=== PATIENT | male | born 1995 | race Caucasian/White ===

== ENCOUNTER 2024-09-08 15:19 | Emergency (ER) | payer BC, SELFPAY ==
[2024-09-08 15:26] VITALS: BP 152/95
[2024-09-08 15:41] LABS: Hematocrit 45.7 % (39.0-52.0); Hemoglobin 15.8 g/dL (13.0-18.0); Mean Corp Hgb Conc. 34.6 g/dL (33.0-37.0); Mean Corpuscular Volume 87.5 fL (80.0-94.0); Nucleated Red Blood Cells % 0 % (-); Platelet Count 326 10^3/uL (130-400); Red Cell Dist. Width 11.9 % (11.5-14.5)
[2024-09-08 15:51] LABS: ALT (SGPT) 21 U/L (0-50); AST (SGOT) 32 U/L (17-59); Albumin 5.0 g/dl (3.5-5.0); Alkaline Phosphatase 59 U/L (38-126); Blood Urea Nitrogen 13 mg/dl (9-20); Calcium 10.0 mg/dl (8.4-10.2); Carbon Dioxide 25 mmol/L (22-30); Chloride 104 mmol/L (98-107); Glucose 98 mg/dl (70-99); Potassium 4.3 mmol/L (3.5-5.1); Sodium 138 mmol/L (135-145); Total Protein 7.8 g/dl (6.3-8.2); eGFR > 60.00
[2024-09-08 16:01] LABS: Troponin I < 0.012 ng/ml
--- NOTE | 2024-09-08 17:25 | ED.GENMED ---
History of Present Illness
General
Chief Complaint: Chest Pain
Source: patient
Exam Limitations: none
Time Seen by Provider: 09/08/24 17:10
History of Present Illness
History of Present Illness:
29yoM with no significant past medical history presenting for evaluation of chest pain. Patient reports intermittent chest over the past week or so. The pain is described as sharp and migrates in location. Pain is worse with coughing and deep
breathing. He does admit to vaping and so has a chronic cough from that. Patient is mainly concerned that his organs may be enlarged due to his prior history of alcohol use. No family history of heart disease and he does not take any prescription
medications.
Phy Exam
General Physical Exam
General Presentation: well appearing and no apparent distress
General age: appears stated age
General Skin: warm and dry
General Habitus: normal
General Mental: alert
ENT Exam
ENT Exam: normocephalic
Cardiovascular Exam
Cardiovascular Exam: regular rate/rhythm, no edema and no murmur
Pulmonary Exam
Pulmonary Exam: lungs clear, no respiratory distress, no rales, no crackles, no rhonchi, no wheezing and other (Mild chest wall tenderness)
Gastrointestinal Exam
Gastrointestinal Exam: non tender, soft and non distended
Neurological Exam
Neurological Exam: alert
[place] Coma Scale
Eye Opening: Spontaneous
Verbal Response: Oriented
Motor Response: Obeys Commands
GCS Total Score: 15
Skin Exam
Skin Exam: normal color and warm/dry
Psychiatric Exam
Psychiatric Exam: normal mood/affect
Scores
Heart Score for Chest Pain Patients
STEMI patient?: No
History: Slightly or Non-Suspicious
ECG: Normal
Age: </= 45 years
Risk Factors: No Risk Factors
Troponin: </= Normal Limit
Heart Score for Chest Pain Patients: 0
Heart Score Risk: 2.5% MACE over next 6 weeks
PE Wells Score
Symptoms of DVT: No
No alternative diagnosis better explains the illness: No
Tachycardia with pulse > 100: No
Immobilization (>=3 days) or surgery within previous 4 weeks: No
Prior history of DVT or pulmonary embolism: No
Presence of hemoptysis: No
Presence of malignancy: No
Pulmonary Embolism Risk Score: 0
Probability of PE: Pt is low risk
PERC Rule Criteria
Age <50 years: Yes
HR <100 bpm: Yes
Room air oxygen sat >94%: Yes
History of DVT or PE: No
Recent trauma or surgery: No
Hemoptysis: No
Exogenous estrogen: No
Clinical signs suggestive of DVT: No
: No
Considered low risk for PE: Yes
PERC Score: 0
PE can be excluded by PERC: Yes
Course
Orders/Labs/Results
Orders:
Orders
09/08/24 15:20
EKG [Electrocardiogram (*1)] Urgent
Reason for Study: Chest Pain
EKG- Treatment ONCE
09/08/24 15:31
Complete Blood Count/With Diff Urgent
Comprehensive Metabolic Panel Urgent
Lipase Urgent
Comment: ADD ON
Troponin I Urgent
09/08/24 17:33
Add On- LAB Urgent
Tests Added?: lipase
CR Chest - 2 Views Urgent
Comment:
Reason For Exam: CP
US Abdomen Complete/Upper Urgent
Comment:
Reason For Exam: upper abd pain
Abnormal Lab Results
09/08/24
15:31
Total Bilirubin 1.5 H mg/dl
(0.2-1.3)
09/08/24 15:31
09/08/24 15:31
Vital Signs
Initial and Last Documented VS:
Initial Vital Signs
Temp Pulse Resp BP Pulse Ox
98.3 F 85 16 152/95 100
09/08/24 15:26 09/08/24 15:26 09/08/24 15:26 09/08/24 15:26 09/08/24 15:26
Last Documented Vital Signs
Temp Pulse Resp BP Pulse Ox
98.3 F 64 18 126/73 99
09/08/24 15:26 09/08/24 18:19 09/08/24 18:19 09/08/24 18:19 09/08/24 18:19
MDM/Problems Addressed
Differential Diagnosis Includes:
29yoM here with intermittent chest pain x 1 week. Migrates in location, worse with coughing. VSS and oxygen saturation 100%. There is mild chest wall tenderness on exam. Differential diagnosis includes but is not limited to: musculoskeletal,
pleurisy, pneumonia, pneumothorax, doubt ACS
Initial ED plan: Workup initiated in triage. EKG shows NSR without ischemic changes and troponin WNL. He is low risk according to Wells criteria and PERC criteria negative, PE is clinically ruled out. Will check CXR and upper abdominal ultrasound.
*Pulse Oximetry
SaO2: 100
Oxygen Mode of Delivery: Room air
Patient hypoxic: no (100%)
*EKG
Interpreted by ED Provider?: Yes
EKG Intrepretation Date: 09/08/24
Heart Rate: 95
Rate: normal
Rhythm: sinus
[place]: normal axis
Interval: normal interval
QRS Pattern: right bundle branch block (incomplete)
Ischemia: no ischemia
*Critical Care Note
Total Time (30-74mins, 75-104mins- exclusive of procedures): Not Applicable
Update Note
Update Note:
CXR is clear. Abdominal ultrasound is negative for acute findings. No indication for hospitalization. Advised f/u with PCP and patient discharged in stable condition.
ED Attending Note
-
Portions of this chart may have been created with voice recognition software.� Occasional wrong word or��sound alike� substitutions may have occurred due to the inherent limitations of voice recognition software.
Discharge Plan
Departure
Patient Disposition: Home (Routine Discharge)
Date of Disposition: 09/08/24
Time of Disposition: 18:52
Patient with high blood pressure during this ER visit?: No
Discharge Problem:
Chest pain
Instructions: Chest Pain PCP Follow Up
Referrals:
Elie Perdomo MD [Family Provider, Family Practice]
Activity Restrictions/Additional Instructions:
Please call tomorrow to schedule a follow-up with your family doctor. Return to the ER with any new or worsening symptoms.
Interventions
Interventions:
*Risk Screen - Suicide Last Done: 09/08/24 15:26
*General Assessment Last Done: 09/08/24 17:30
*Neglect/Abuse Screening Last Done: 09/08/24 15:26
*ED- Fall Risk Assessment Last Done: 09/08/24 17:30
*ED COVID-19 Vaccine History Last Done: 09/08/24 17:30
*Nursing Disposition Last Done: 09/08/24 19:06
ED- Cardiac Assessment Last Done: 09/08/24 17:23
Discharge Date and Time
Discharge Date/Time: 09/08/24 19:06
Print Language: CZECH
[2024-09-08 18:10] LABS: Lipase 81 U/L (23-300)
[2024-09-08 18:19] VITALS: BP 126/73
== END 2024-09-08 19:06 | disposition home or self-care (01) ==
LOC: EMR 15:19
PROVIDERS: EMERGENCY PHYSICIAN Student in an Organized Health Care Education/Training Program; FAMILY PHYSICIAN Family Medicine
DX: R07.89 Other chest pain (principal); R10.10 Upper abdominal pain, unspecified; R05.3 Chronic cough; F17.290 Nicotine dependence, other tobacco product, uncomplicated
CPT/HCPCS: 99284; 71046; 76700; 80053; 83690; 84484; 85025; 93005